=== PATIENT | female | born 1970 | race Caucasian/White ===

== ENCOUNTER 2016-07-05 21:57 | Emergency (ER) | payer MEDICARE ==
[~2016-07-05 21:57] MED LIST: ALPRAZOLAM PO; AMOXICILLIN PO; LAMICTAL PO; PAXIL PO; VICODIN 5/500 T1 TAB PO; ZYPREXA PO
== END 2016-07-06 02:05 | disposition home or self-care (01) ==
LOC: CED 21:57
DX: L02.416 Cutaneous abscess of left lower limb (principal); F31.9 Bipolar disorder, unspecified; F43.10 Post-traumatic stress disorder, unspecified; F17.210 Nicotine dependence, cigarettes, uncomplicated; Z23 Encounter for immunization; Z90.49 Acquired absence of other specified parts of digestive tract
CPT/HCPCS: 10060; 90471; 90715; 99283